=== PATIENT | female | born 1985 | race Caucasian/White ===

== ENCOUNTER 2020-11-14 18:24 | Observation (INO) | payer OTHER ==
[~2020-11-14] VITALS: Ht 175.3 cm; Wt 98.0 kg
[~2020-11-14 18:24] MED LIST: BUPRENORPHINE HC8 MG SL; COLACE 100MG C100 MG PO; IBUPROFEN600 MG PO
[2020-11-14 19:30] LABS: HEMOGLOBIN 10.9 gm/dl (12.3-15.3); RED BLOOD COUNT 3.81 M/UL (4.00-5.10); WHITE BLOOD COUNT 16.7 K/UL (4.5-11.0)
[2020-11-15] MEDS ORDERED: PRENATAL VITAM1 EAC3 PO (06:08)
[2020-11-15] MEDS ORDERED: SUBUTEX 8 MG TAB8 MG SL (06:08)
== END 2020-11-15 17:15 | disposition home or self-care (01) ==
LOC: CDU 18:24 → OB 18:24
PROVIDERS: ADMIT Obstetrics & Gynecology
DX: O99.323 Drug use complicating pregnancy, third trimester (principal); O09.33 Supervision of pregnancy with insufficient antenatal care, third trimester; O99.333 Smoking (tobacco) complicating pregnancy, third trimester; O99.343 Other mental disorders complicating pregnancy, third trimester; F11.10 Opioid abuse, uncomplicated; F17.210 Nicotine dependence, cigarettes, uncomplicated; F41.9 Anxiety disorder, unspecified; Z3A.39 39 weeks gestation of pregnancy; Z79.899 Other long term (current) drug therapy; Z88.2 Allergy status to sulfonamides; Z88.8 Allergy status to other drugs, medicaments and biological substances
CPT/HCPCS: 36415; 80307; 81001; 85007; 85027; G0378; G0379; J2590

== ENCOUNTER 2020-11-29 09:06 | Observation (INO) | payer OTHER ==
[~2020-11-29 09:06] MED LIST changes: +PRENATAL VITAM1 EAC3 PO; +SUBUTEX 8 MG TAB8 MG SL
[2020-11-29 10:11] LABS: HEMOGLOBIN 11.1 gm/dl (12.3-15.3); RED BLOOD COUNT 3.99 M/UL (4.00-5.10); WHITE BLOOD COUNT 13.8 K/UL (4.5-11.0)
== END 2020-11-29 11:54 | disposition left against medical advice (07) ==
LOC: GENOP 09:06 → OB 09:33
PROVIDERS: Obstetrics & Gynecology; ADMIT Obstetrics & Gynecology
DX: O32.2XX0 Maternal care for transverse and oblique lie, not applicable or unspecified (principal); O99.323 Drug use complicating pregnancy, third trimester; F11.21 Opioid dependence, in remission; O48.0 Post-term pregnancy; Z3A.41 41 weeks gestation of pregnancy; O99.013 Anemia complicating pregnancy, third trimester; D64.9 Anemia, unspecified; O99.343 Other mental disorders complicating pregnancy, third trimester; F32.9 Major depressive disorder, single episode, unspecified; F41.9 Anxiety disorder, unspecified; Z20.822 Contact with and (suspected) exposure to COVID-19
CPT/HCPCS: 80307; 81001; 85025; G0378; J7120; U0002

== ENCOUNTER 2020-12-04 05:47 | Inpatient (IN) | payer OTHER ==
[~2020-12-04] VITALS: Ht 175.3 cm; Wt 101.2 kg
[2020-12-04 06:30] LABS: HEMOGLOBIN 10.1 gm/dl (12.3-15.3); RED BLOOD COUNT 3.71 M/UL (4.00-5.10); WHITE BLOOD COUNT 11.5 K/UL (4.5-11.0)
[2020-12-04] MEDS ORDERED: IBUPROFEN600 MG PO (07:45)
[2020-12-04] MEDS ORDERED: COLACE 100MG C100 MG PO (07:45)
[2020-12-04] MEDS ORDERED: SUBUTEX 8 MG TAB8 MG SL (07:45)
== END 2020-12-07 18:57 | disposition home or self-care (01) | DRG 787 ==
LOC: OB 05:47
PROVIDERS: ADMIT Obstetrics & Gynecology
PROC: 4A1HXCZ Monitoring of Products of Conception, Cardiac Rate, External Approach (ICD-10-PCS; 2020-12-04)
PROC: 10D00Z1 Extraction of Products of Conception, Low, Open Approach (ICD-10-PCS; principal; 2020-12-04 07:36)
DX: O32.0XX1 Maternal care for unstable lie, fetus 1 (principal); F11.20 Opioid dependence, uncomplicated; O99.324 Drug use complicating childbirth; Z37.0 Single live birth; Z3A.39 39 weeks gestation of pregnancy; O36.63X0 Maternal care for excessive fetal growth, third trimester, not applicable or unspecified; O99.334 Smoking (tobacco) complicating childbirth; F17.210 Nicotine dependence, cigarettes, uncomplicated; O99.02 Anemia complicating childbirth; D64.9 Anemia, unspecified; O99.344 Other mental disorders complicating childbirth; F41.9 Anxiety disorder, unspecified; Z20.822 Contact with and (suspected) exposure to COVID-19; Z88.2 Allergy status to sulfonamides
CPT/HCPCS: 36415; 80307; 81001; 82800; 85014; 85018; 85025; 90471; 90715; C9113; J0690; J1650; J1885; J2274; J2370; J2405; J2590; J3010; J7120; U0002